=== PATIENT | male | born 1980 | race Caucasian/White ===

== ENCOUNTER 2017-10-30 22:32 | Emergency (ER) | payer SELFPAY ==
[~2017-10-30 22:32] MED LIST: ISOVUE-370 76%-LOCM 1 ML ONE
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
[2017-10-30] MEDS ORDERED: Ondansetron HCl/PF 4 MG/2 ML Vial ONE (23:08)
[2017-10-30] MEDS ORDERED: Ondansetron ODT 4 MG TAB ONE (23:08)
[2017-10-30] MEDS ORDERED: Adacel (T-DAP) 0.5 ML VIAL ONE (23:08)
[2017-10-30] MEDS ORDERED: Bacitracin Zinc 1 Packet ONE ×2 (23:16→23:17)
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
== END 2017-10-30 23:48 | disposition home or self-care (01) ==
LOC: ERS 22:32
DX: S01.01XA Laceration without foreign body of scalp, initial encounter (principal); S16.1XXA Strain of muscle, fascia and tendon at neck level, initial encounter; S20.212A Contusion of left front wall of thorax, initial encounter; S30.1XXA Contusion of abdominal wall, initial encounter; V49.9XXA Car occupant (driver) (passenger) injured in unspecified traffic accident, initial encounter
CPT/HCPCS: 12002; 70450; 71260; 72125; 74177; 90715; 93005; 94760; G0390; J2405; Q0162

== ENCOUNTER 2018-08-26 15:29 | Outpatient (CLI) | payer OTHER ==
--- NOTE | 2018-08-26 16:58 | MRI ---
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 There is expansion of the tuft and distal phalanx of the thumb with replacement of normal medullary c avity with T1 hypointense and T2 moderately hyperintense material. There is some thinning of the cortex. No is breakthrough of the cortex. The signal is somewhat homogeneous. Extensor and flexor tendons are intact. The muscle signal and bulk is normal. Impression: Homogeneous intramedullary mass at the distal phalanx of the thumb extending to the tuft. This evaluation is limited without intravenous contrast. No cortical breakthrough. Mass has imaging findings of a bone cyst versus giant cell tumor, glomus tumor, and epidermal inclusion cyst. Postcontrast imaging would be beneficial if clinically warranted.
== END 2018-08-26 15:30 | disposition home or self-care (01) ==
LOC: BICMRI 15:29
PROVIDERS: ATTEND Orthopaedic Surgery Hand Surgery
DX: G58.8 Other specified mononeuropathies (principal); R22.32 Localized swelling, mass and lump, left upper limb

== ENCOUNTER 2020-07-05 16:38 | Emergency (ER) | payer OTHER | END 2020-07-05 18:12 | disposition home or self-care (01) | LOC: ERS 16:38 | DX: L03.312 Cellulitis of back [any part except buttock and flank] (principal); F17.210 Nicotine dependence, cigarettes, uncomplicated ==

== ENCOUNTER 2021-03-27 06:33 | Emergency (ER) | payer OTHER, SELFPAY ==
[2021-03-27] MEDS ORDERED: Fluorescein Opthalmic Strip ONE (07:01)
[2021-03-27] MEDS ORDERED: Ibuprofen 800 MG TAB ONE (07:01)
[2021-03-27] MEDS ORDERED: Proparacaine 0.5% Opth 15 ML BOT ONE (07:04)
== END 2021-03-27 07:45 | disposition home or self-care (01) ==
LOC: ERS 06:33
DX: T15.92XA Foreign body on external eye, part unspecified, left eye, initial encounter (principal); T15.91XA Foreign body on external eye, part unspecified, right eye, initial encounter; H16.133 Photokeratitis, bilateral; F17.210 Nicotine dependence, cigarettes, uncomplicated
CPT/HCPCS: 65220

== ENCOUNTER 2021-06-16 19:20 | Emergency (ER) | payer SELFPAY ==
[2021-06-16] MEDS ORDERED: Boostrix 0.5 ML (Tdap) VIAL ONE (21:55)
== END 2021-06-16 22:02 | disposition home or self-care (01) ==
LOC: ERS 19:20
DX: S61.511A Laceration without foreign body of right wrist, initial encounter (principal); F17.210 Nicotine dependence, cigarettes, uncomplicated; Z23 Encounter for immunization; W25.XXXA Contact with sharp glass, initial encounter
CPT/HCPCS: 90471; 90715

== ENCOUNTER 2023-05-10 07:11 | Emergency (ER) | payer SELFPAY ==
[2023-05-10 07:39] LABS: Bacteria/HPF None Seen HPF (None Seen); Bilirubin Negative (Negative); Blood, Urine Trace (Negative); CAUTI Indications for Culture Alt mental st,lethar; Clarity Clear (Clear); Glucose, Urine (Dipstick) Normal (Negative); Ketone, Urine Negative (Negative); Leukocyte Negative Leu/uL (Negative); Nitrite Negative (Negative); Protein, Urine (Dipstick) Negative (Neg-Trace); RBC/HPF 0-3 HPF (0-3); Specific Gravity, Urine 1.008 (1.002-1.036); Squamous Epithelial None Seen HPF (0-3); Urobilinogen Normal mg/dL (Less than 2); WBC/HPF 0-3 HPF (0-3); pH, Urine 5.5 (5.0-9.0)
[2023-05-10 07:47] LABS: Amphetamine Detected (NotDetected); Barbiturates Screen Not Detected (NotDetected); Benzodiazepine Screen Not Detected (NotDetected); Cocaine Metabolite Screen Not Detected (NotDetected); Methadone Not Detected (NotDetected); Methamphetamine Detected (NotDetected); Opiate Screen Not Detected (NotDetected); Oxycodone Screen Not Detected (NotDetected); Phencyclidine (PCP) Not Detected (NotDetected); THC/Cannabinoid Screen Detected (NotDetected); Tricyclic Screen Not Detected (NotDetected)
[2023-05-10 07:48] LABS: Actual Bicarbonate (HCO3v) 19.3 mEq/L (22-28); Base Excess -5.4 mEq/L (-2.0 to +3.0); Calcium, Ionized (venous) 1.17 mmol/L (1.16-1.32); Chloride (VBG) 107 mmol/L (98-106); Hematocrit-VBG 49 % (42.0-52.0); Hemoglobin (Hb) 16.7 g/dL (13.2-17.3); Potassium (VBG) 3.58 mmol/L (3.70-5.30); pH (venous) 7.349 (7.32-7.43)
[2023-05-10 07:50] LABS: Urine Culture Reflex No No
[2023-05-10 07:51] LABS: #Monocytes 0.9 thou/uL (0.11-0.59); #Neutrophils 10.9 thou/uL (1.40-6.50); %Basophils 0.2 % (0.0-1.0); %Eosinophils 0.1 % (0.0-10.0); %Lymphocytes 5.7 % (21.0-51.0); %Monocytes 7.3 % (0.0-10.0); %Neutrophils 85.8 % (42.0-75.0); Hematocrit 44.9 % (42.0-52.0); Hemoglobin 15.8 g/dL (14.0-18.0); Mean Corpuscular HGB CONC 35.2 g/dL (32.0-36.0); Mean Corpuscular Hemoglobin 31.8 pg (27.0-31.0); Mean Corpuscular Volume 90.3 fl (78.0-98.0); Platelet Count 250 10x3/uL (130-400); RBC Distribution Width 12.6 % (11.5-14.5); Red Blood Cell (RBC) Count 4.97 mill/uL (4.70-6.10); White Blood Cell (WBC) Count 12.7 10x3/uL (4.8-10.8)
[2023-05-10] MEDS ORDERED: LevoFLOXacin 750 mg/D5W 150 ml Premix Bag ONE (07:56)
[2023-05-10 08:20] LABS: Acetaminophen Less than 10 mcg/mL (10.0-30.0); Alcohol Less than 10.0 mg/dL (Less than 10); Lipase 64 U/L (8-78); Magnesium 2.5 mg/dL (1.6-2.6); Salicylate Less than 8.0 mg/dL (15.0-30.0)
[2023-05-10 08:21] LABS: ALT (SGPT) 21 U/L (8-55); AST (SGOT) 34 U/L (5-34); Alkaline Phosphatase 67 U/L (40-110); Anion Gap 15 mmol/L (10-20); BUN (Urea Nitrogen) 16 mg/dL (8.9-20.6); Bilirubin, Total 0.8 mg/dL (0.2-1.2); CK (CPK) 1106 U/L (30-200); Calc. Creatinine Clearance 0 mL/min (70-130); Calcium 8.5 mg/dL (7.8-10.44); Carbon Dioxide 20 mmol/L (22-29); Chloride 112 mmol/L (98-107); Estimated GFR 79; Globulin 2.6 g/dL (2.4-3.5); Glucose 68 mg/dL (70-105); Potassium 3.6 mmol/L (3.5-5.1); Protein, Total 6.6 g/dL (6.0-8.3); Sodium 143 mmol/L (136-145)
[2023-05-10] MEDS ORDERED: Ketorolac Tromethamine 30 MG (1 mL) VIAL ONE (09:17)
== END 2023-05-10 10:58 ==
LOC: ERS 07:11
DX: T68.XXXA Hypothermia, initial encounter (principal); E86.0 Dehydration; F15.10 Other stimulant abuse, uncomplicated; F17.210 Nicotine dependence, cigarettes, uncomplicated
CPT/HCPCS: 36415; 71045; 80306; 80307; 82805; 83605; 83690; 83735; 93005; 94760; 96361; 96365; 96375; J1885; J1956

== ENCOUNTER 2023-06-06 22:19 | Emergency (ER) | payer SELFPAY ==
[2023-06-06 23:11] LABS: Amphetamine Detected (NotDetected); Barbiturates Screen Not Detected (NotDetected); Benzodiazepine Screen Not Detected (NotDetected); Cocaine Metabolite Screen Not Detected (NotDetected); Methadone Not Detected (NotDetected); Methamphetamine Detected (NotDetected); Opiate Screen Not Detected (NotDetected); Oxycodone Screen Not Detected (NotDetected); Phencyclidine (PCP) Not Detected (NotDetected); THC/Cannabinoid Screen Detected (NotDetected); Tricyclic Screen Not Detected (NotDetected)
[2023-06-06 23:14] LABS: Bacteria/HPF None Seen HPF (None Seen); CAUTI Indications for Culture Pelvic or flank pain; RBC/HPF 0-3 HPF (0-3); Squamous Epithelial 0-3 HPF (0-3); WBC/HPF 0-3 HPF (0-3)
[2023-06-06 23:29] LABS: Bilirubin Negative (Negative); Blood, Urine Negative (Negative); Glucose, Urine (Dipstick) Negative (Negative); Ketone, Urine Negative (Negative); Leukocyte Negative (Negative); Nitrite Negative (Negative); Protein, Urine (Dipstick) Negative (Neg-Trace); Urobilinogen 0.2 mg/dL (Less than 2)
[2023-06-06 23:37] LABS: Specific Gravity, Urine 1.016 (1.002-1.036)
[2023-06-06 23:38] LABS: Clarity Clear (Clear); Sperm/HPF 4+ HPF (None Seen); Urine Culture Reflex No No
[2023-06-06 23:51] LABS: #Monocytes 1.1 thou/uL (0.11-0.59); #Neutrophils 10.3 thou/uL (1.40-6.50); %Basophils 0.2 % (0.0-1.0); %Lymphocytes 10.4 % (21.0-51.0); %Monocytes 8.8 % (0.0-10.0); %Neutrophils 80.2 % (42.0-75.0); Hematocrit 50.2 % (42.0-52.0); Hemoglobin 17.2 g/dL (14.0-18.0); Mean Corpuscular HGB CONC 34.3 g/dL (32.0-36.0); Mean Corpuscular Hemoglobin 31.2 pg (27.0-31.0); Mean Corpuscular Volume 91.1 fl (78.0-98.0); Mean Platelet Volume 10.6 fL (7.4-10.4); Platelet Count 326 10x3/uL (130-400); RBC Distribution Width 12.2 % (11.5-14.5); Red Blood Cell (RBC) Count 5.51 mill/uL (4.70-6.10); White Blood Cell (WBC) Count 12.8 10x3/uL (4.8-10.8)
[2023-06-06] MEDS ORDERED: LORazepam 2 MG/ML SYR.(CARPUJECT) ONE (23:59)
[2023-06-07 00:15] LABS: ALT (SGPT) 27 U/L (8-55); AST (SGOT) 22 U/L (5-34); Alkaline Phosphatase 80 U/L (40-110); Anion Gap 16 mmol/L (10-20); BUN (Urea Nitrogen) 14 mg/dL (8.9-20.6); Bilirubin, Total 0.7 mg/dL (0.2-1.2); CK (CPK) 94 U/L (30-200); Calc. Creatinine Clearance 0 mL/min (70-130); Calcium 10.8 mg/dL (7.8-10.44); Carbon Dioxide 26 mmol/L (22-29); Chloride 103 mmol/L (98-107); Estimated GFR 77; Globulin 3.2 g/dL (2.4-3.5); Glucose 106 mg/dL (70-105); Potassium 4.3 mmol/L (3.5-5.1); Protein, Total 8.2 g/dL (6.0-8.3); Sodium 141 mmol/L (136-145)
[2023-06-07 00:16] LABS: Acetaminophen Less than 10 mcg/mL (10.0-30.0); Alcohol Less than 10.0 mg/dL (Less than 10); Salicylate Less than 8.0 mg/dL (15.0-30.0)
[2023-06-07] MEDS ORDERED: Acetaminophen 500 MG TAB ONE (10:24)
== END 2023-06-07 12:16 | disposition home or self-care (01) ==
LOC: ERS 22:19 → EEVIPCON 22:19 → ERS 06-07 12:16
DX: F15.10 Other stimulant abuse, uncomplicated (principal); R03.0 Elevated blood-pressure reading, without diagnosis of hypertension; E83.52 Hypercalcemia; Z55.6 Problems related to health literacy; F17.210 Nicotine dependence, cigarettes, uncomplicated
CPT/HCPCS: 36415; 80053; 80306; 80307; 81001; 84443; 85025; 93005; 96374; J2060